=== PATIENT | female | born 1950 | race Caucasian/White ===

== ENCOUNTER 2016-12-26 09:28 | Inpatient (IN) | payer MEDICARE, BC ==
[~2016-12-26 09:28] MED LIST: Lactated Ringers 1,000 ML IV SCH; Lidocaine 1%/Sod Bicarbonate in NS 8.4% 1 ML Syringe IV PRN; Sodium Chloride 0.9% 10 ML Syringe FLUSH PRN
[2016-12-26] MEDS ORDERED: Ondansetron 4 MG/2 ML SDV ONE (09:49)
[2016-12-26] MEDS ORDERED: Morphine PF 10 MG/10 ML SDV ONE (09:50)
[2016-12-26] MEDS ORDERED: Midazolam 1 MG/ML 2 ML SDV ONE (09:50)
[2016-12-26] MEDS ORDERED: Propofol 200 MG/20 ML SDV ONE ×3 (09:50→14:28)
[2016-12-26] MEDS ORDERED: fentaNYL 100 MCG/2 ML SDV ONE (09:50)
[2016-12-26] MEDS ORDERED: Vancomycin 1 GM SDV ONE (11:00)
[2016-12-26] MEDS ORDERED: ceFAZolin 1 GM Vial ONE (11:26)
--- NOTE | 2016-12-26 11:28 | PCM.PREANE ---
Preanesthetic Assessment - Anesthesia/Transfusion/Family Hx Anesthesia History: Prior Anesthesia Without Reaction Other Type of Anesthesia Reaction Comment: anxiety Family History of Anesthesia Reaction: No Transfusion History: No Prior Transfusion(s) Type of Transfusion Reactions: Reports: Unknown - Review of Systems General: No Symptoms Pulmonary: No Symptoms, Other (sleep apnea wears CPAP) Cardiovascular: No Symptoms Gastrointestinal: No Symptoms Neurological: No Symptoms Other: Reports: Depression - Physical Assessment NPO Status Date: 12/25/16 NPO Status Time: 23:30 Pulse: 69 O2 Sat by Pulse Oximetry: 93 Respiratory Rate: 16 Blood Pressure: 131/6 Temperature: 36.6 C Height: 1.68 m Weight: 106.594 kg ASA Class: 2 Mental Status: Alert & Oriented x3 Airway Class: Mallampati = 2 Dentition: Reports: Normal Dentition Thyro-Mental Finger Breadths: 3 Mouth Opening Finger Breadths: 3 ROM/Head Extension: Full Lungs: Clear to Auscultation, Normal Respiratory Effort Cardiovascular: Regular Rate, Regular Rhythm - Lab Values: Laboratory Last Values C-Reactive Protein 0.7 mg/dL (<1.0) 12/22/16 12:22 MRSA (PCR) Positive H 12/07/16 10:05 - Allergies Allergies/Adverse Reactions: Allergies Allergy/AdvReac Type Severity Reaction Status Date / Time Sulfa (Sulfonamide Allergy Hives Verified 12/25/16 11:56 Antibiotics) - Blood Blood Available: No Product(s) Available: None - Anesthesia Plan Pre-Op Medication Ordered: None - Acknowledgements Anesthesia Type Planned: Spinal Pt an Appropriate Candidate for the Planned Anesthesia: Yes Alternatives and Risks of Anesthesia Discussed w Pt/Guardian: Yes Pt/Guardian Understands and Agrees with Anesthesia Plan: Yes PreAnesthesia Questionnaire HEENT History: Reports: Allergic Rhinitis, Impaired Vision, Sinusitis, Other ( See Below) Other HEENT History: eustachian tube dysfunction, wears glasses Cardiovascular History: Reports: None Respiratory History: Reports: Sleep Apnea, SOB Other Respiratory History: uses CPAP Gastrointestinal History: Reports: Chronic Diarrhea, Pancreatitis Genitourinary History: Reports: Other (See Below) Other Genitourinary History: frequency and urgency [employer] SU[employer]OR History: Reports: Musculoskeletal History: Reports: Other (See Below) Other Musculoskeletal History: plantar fascititis, left hip pain Neurological History: Reports: None Psychiatric History: Reports: Anxiety, Depression, Panic Attack Endocrine/Metabolic History: Reports: Obesity/BMI 30+ Hematologic History: Reports: None Immunologic History: Reports: None Oncologic (Cancer) History: Reports: None Dermatologic History: Reports: None - Infectious Disease History Infectious Disease History: Reports: MRSA - Past Surgical History Head Surgeries/Procedures: Reports: None HEENT Surgical History: Reports: Cataract Surgery, LASIK, Myringotomy w Tube(s) Cardiovascular Surgical History: Reports: None Respiratory Surgical History: Reports: None GI Surgical History: Reports: Cholecystectomy, Colonoscopy, Hernia Repair/Other Female Surgical History: Reports: Section, Hysterectomy Male Surgical History: Reports: None Endocrine Surgical History: Reports: None Neurological Surgical History: Reports: None Musculoskeletal Surgical History: Reports: Knee Replacement, Other (See Below) Other Musculoskeletal Surgeries/Procedures:: bilateral knee replacements Dermatological Surgical History: Reports: None - SUBSTANCE USE Smoking Status *Q: Never Smoker Second Hand Smoke Exposure: No Recreational Drug Use History: No - HOME MEDS Home Medications: Home Meds Cetirizine HCl [Zyrtec] 10 mg PO DAILY 05/08/15 [History] Sertraline HCl 150 mg PO DAILY 05/08/15 [History] Acetaminophen [Tylenol Arthritis] 2 tab PO Q8HR PRN 12/25/16 [History] Antiox #11/OM3/DHA/EPA/Lut/June [Eye Health Adult 50+ Softgel] 2 cap PO BID 12/25 [History] Calcium Carbonate/Vitamin D3 [Calcium 500 mg Chewable Tablet] 500 mg PO BID 07/06 [History] Dextran 70/Hypromellose [Artificial Tears] 1 drop EYEBOTH Q6H PRN 12/25/16 [ History] Flaxseed/Evening Prim/Bilberry [Tears Again Hydrate Softgel] 1 cap PO DAILY 07/06 [History] Ibuprofen [Advil] 800 mg PO Q6H PRN 12/25/16 [History] L.acidoph,Paracasei, B.lactis [Probiotic] 1 cap PO DAILY 12/25/16 [History] Melatonin/Pyridoxine HCl (B6) [Melatonin 10 mg Tablet] 10 mg PO BEDTIME [History] Meloxicam [Meloxicam] 15 mg PO DAILY 12/25/16 [History] Naproxen Sodium [Aleve] 1 - 2 tab PO BID PRN 12/25/16 [History] guaiFENesin [Mucinex] 600 mg PO BID PRN 12/25/16 [History] - CURRENT (IN HOUSE) MEDS Current Meds: Current Medications Morphine Sulfate 8 mg/Epinephrine HCl 0.3 mg/Cefuroxime Sodium 750 mg/Ketorolac Tromethamine 30 mg/Sodium Chloride 27.9 ml 0 mg .XX ONETIME ONE Stop: 12/26/16 13:31 Lactated Ringer's (Ringers, Lactated) 1,000 mls @ 125 mls/hr IV ASDIRECTED ADDI Lidocaine/Sodium Bicarbonate (Buffered Lidocaine 1% In Ns 8.4%) 0.25 ml IV ONETIME PRN PRN Reason: Prior to IV Start Stop: 12/26/16 18:00 Sodium Chloride (Saline Flush) 10 ml FLUSH ASDIRECTED PRN PRN Reason: Keep Vein Open Discontinued Medications Cefazolin Sodium (Ancef) Confirm Administered Dose 2 gm .ROUTE .STK-MED ONE Stop: 12/26/16 09:50 Fentanyl (Sublimaze) Confirm Administered Dose 100 mcg .ROUTE .STK-MED ONE Stop: 12/26/16 09:51 Midazolam HCl (Versed 1 Mg/Ml) Confirm Administered Dose 2 mg .ROUTE .STK-MED ONE Stop: 12/26/16 09:51 Morphine Sulfate (Duramorph Pf) Confirm Administered Dose 10 mg .ROUTE .STK-MED ONE Stop: 12/26/16 09:51 Ondansetron HCl (Zofran) Confirm Administered Dose 4 mg .ROUTE .STK-MED ONE Stop: 12/26/16 09:50 Propofol (Diprivan 20 Ml) Confirm Administered Dose 400 mg .ROUTE .STK-MED ONE Stop: 12/26/16 09:51 Vancomycin HCl (Vancomycin) 1 gm .XX ONETIME ONE Stop: 12/26/16 11:01
[2016-12-26] MEDS ORDERED: Vancomycin 1.5 GM in Sodium Chloride 0.9% 500 ML IV ONE ×2 (13:00)
[2016-12-26] MEDS ORDERED: ePHEDrine 50 MG/ML SDV ONE (13:16)
[2016-12-26] MEDS ORDERED: Ketorolac 30 MG/ML SDV ONE (13:16)
[2016-12-26] MEDS: Iodine/Sodium Iodide 2% Tincture 30 ML Bottle ONE ×2 (13:39→14:07)
[2016-12-26] MEDS: ceFAZolin 1 GM Vial ONE ×2 (13:40→14:08)
[2016-12-26] MEDS: Bupivacaine 0.25% 30 ML SDV ONE ×2 (13:41→14:14)
[2016-12-26] MEDS: Morphine 8 MG, EPINEPHrine 0.3 MG, Cefuroxime 750 MG, Ketorolac 30 MG, Sodium Chloride ... ONE ×20 (13:41→16:05)
[2016-12-26] MEDS ORDERED: Lactated Ringers 1,000 ML ONE (14:29)
[2016-12-26] MEDS ORDERED: Magnesium Hydroxide 400 MG/5 ML Susp 30 ML Cup PO PRN (14:51)
[2016-12-26] MEDS ORDERED: Bisacodyl 5 MG Tab PO PRN (14:51)
[2016-12-26] MEDS ORDERED: diphenhydrAMINE 50 MG/ML SDV IVPUSH PRN ×2 (14:51→14:57)
[2016-12-26] MEDS ORDERED: Morphine 2 MG/ML Syringe IVPUSH PRN (14:51)
[2016-12-26] MEDS ORDERED: Sennosides 8.6 MG Tab PO PRN (14:51)
[2016-12-26] MEDS ORDERED: Naloxone 0.4 MG/ML SDV IVPUSH PRN (14:51)
[2016-12-26] MEDS ORDERED: HYDROmorphone 0.5 MG/0.5 ML Syringe IVPUSH PRN (14:57)
[2016-12-26] MEDS ORDERED: fentaNYL 100 MCG/2 ML SDV IVPUSH PRN (14:57)
[2016-12-26] MEDS ORDERED: Ondansetron 4 MG/2 ML SDV IVPUSH PRN ×2 (14:57→15:09)
--- NOTE | 2016-12-26 14:57 | PCM.POSTAN ---
POST ANESTHESIA ASSESSMENT - MENTAL STATUS Mental Status: Alert, Oriented - VITAL SIGNS Pulse Rate: 80 SaO2: 94 Resp Rate: 16 Blood Pressure: 113/64 Temperature: 36.2 C - RESPIRATORY Respiratory Status: Respiratory Rate WNL, Airway Patent, O2 Saturation Stable, Supplemental Oxygen - CARDIOVASCULAR CV Status: Pulse Rate WNL, Blood Pressure Stable - GASTROINTESTINAL GI Status: No Symptoms - PAIN Pain Score: 0 - POST OP HYDRATION Hydration Status: Adequate & Stable
[2016-12-26] MEDS ORDERED: Ketorolac 15 MG/ML SDV IVPUSH PRN (15:00)
[2016-12-26] MEDS ORDERED: Cyclobenzaprine 10 MG Tab PO PRN (15:00)
[2016-12-26] MEDS ORDERED: Non-Formulary Medication 1 Each (Dextran 70/Hypromellose [Artificial Tears] 1 DROP) EYEBOTH PRN (15:09)
[2016-12-26] MEDS ORDERED: guaiFENesin 600 MG Tab.ER PO PRN (15:09)
--- NOTE | 2016-12-26 15:36 | CR ---
Pelvis and left hip: AP view of the pelvis was obtained as well as lateral view the left hip. Comparison: No previous pelvis or left hip exam. Left hip prosthesis is seen. Components are aligned. Underlying bony structures are intact. Nothing acute is seen. Impression: 1. Recently placed left hip prosthesis. No acute bony abnormality is identified. Diagnostic code #2
[2016-12-26] MEDS ORDERED: Scopolamine 1.5 MG Transdermal Patch TRDERM PRN (16:24)
--- NOTE | 2016-12-26 16:38 | PCM.CONS ---
H&P History of Present Illness - General Date of Service: 12/26/16 Admit Problem/Dx: Admission Diagnosis/Problem Admission Diagnosis/Problem Osteoarthritis of hip Source of Information: Patient, Provider, RN, RN Notes Reviewed, Other ( Surgical notes) History Limitations: Reports: No Limitations - History of Present Illness Initial Comments - Free Text/Narative: Amy Vences is a 66 yo female patient of Dr. Hernandez who is post-operative day 0 of left NANCY. Hospital medicine was consulted for post-operative medical care. At this time she is is complaining of severe nausea. Scopolamine patch has been ordered and nursing is applying. Pain is controlled. She denies any chest pain, shortness of breath, palpitations, or vomiting. She carries a history of : EMELIA and wears CPAP at night, anxiety, depression, prior panic attacks, obesity , MRSA, and a history of prior postoperative nausea and vomiting. She is a full code. Her primary care provider is Dr. Bergeron at [facility] in [place].. Left Hip Pain Score (Numeric/FACES): 0 - Related Data Allergies/Adverse Reactions: Allergies Allergy/AdvReac Type Severity Reaction Status Date / Time Sulfa (Sulfonamide Allergy Hives Verified 12/26/16 11:38 Antibiotics) Home Medications: Home Meds Cetirizine HCl [Zyrtec] 10 mg PO DAILY 05/08/15 [History] Sertraline HCl 150 mg PO DAILY 05/08/15 [History] Acetaminophen [Tylenol Arthritis] 2 tab PO Q8HR PRN 12/25/16 [History] Antiox #11/OM3/DHA/EPA/Lut/June [Eye Health Adult 50+ Softgel] 2 cap PO BID 12/25 [History] Calcium Carbonate/Vitamin D3 [Calcium 500 mg Chewable Tablet] 500 mg PO BID 07/06 [History] Dextran 70/Hypromellose [Artificial Tears] 1 drop EYEBOTH Q6H PRN 12/25/16 [ History] Flaxseed/Evening Prim/Bilberry [Tears Again Hydrate Softgel] 1 cap PO DAILY 07/06 [History] Ibuprofen [Advil] 800 mg PO Q6H PRN 12/25/16 [History] L.acidoph,Paracasei, B.lactis [Probiotic] 1 cap PO DAILY 12/25/16 [History] Melatonin/Pyridoxine HCl (B6) [Melatonin 10 mg Tablet] 10 mg PO BEDTIME [History] Meloxicam [Meloxicam] 15 mg PO DAILY 12/25/16 [History] Naproxen Sodium [Aleve] 1 - 2 tab PO BID PRN 12/25/16 [History] guaiFENesin [Mucinex] 600 mg PO BID PRN 12/25/16 [History] Past Medical History HEENT History: Reports: Allergic Rhinitis, Impaired Vision, Sinusitis, Other ( See Below) Other HEENT History: eustachian tube dysfunction, wears glasses Cardiovascular History: Reports: None Respiratory History: Reports: Sleep Apnea, SOB Other Respiratory History: uses CPAP Gastrointestinal History: Reports: Chronic Diarrhea, Pancreatitis Genitourinary History: Reports: Other (See Below) Other Genitourinary History: frequency and urgency [employer]OM [employer]IST History: Reports: Musculoskeletal History: Reports: Other (See Below) Other Musculoskeletal History: plantar fascititis, left hip pain Neurological History: Reports: None Psychiatric History: Reports: Anxiety, Depression, Panic Attack Endocrine/Metabolic History: Reports: Obesity/BMI 30+ Hematologic History: Reports: None Immunologic History: Reports: None Oncologic (Cancer) History: Reports: None Dermatologic History: Reports: None - Infectious Disease History Infectious Disease History: Reports: MRSA - Past Surgical History Head Surgeries/Procedures: Reports: None HEENT Surgical History: Reports: Cataract Surgery, LASIK, Myringotomy w Tube(s) Cardiovascular Surgical History: Reports: None Respiratory Surgical History: Reports: None GI Surgical History: Reports: Cholecystectomy, Colonoscopy, Hernia Repair/Other Female Surgical History: Reports: Section, Hysterectomy Male Surgical History: Reports: None Endocrine Surgical History: Reports: None Neurological Surgical History: Reports: None Musculoskeletal Surgical History: Reports: Knee Replacement, Other (See Below) Other Musculoskeletal Surgeries/Procedures:: bilateral knee replacements Dermatological Surgical History: Reports: None Social & Family History - Family History Family Medical History: Noncontributory Cardiac: Reports: Hypertension, [place] Respiratory: Reports: Asthma Neurological: Reports: Alzheimers Disease Endocrine/Metabolic: Reports: Diabetes, type II Oncologic: Reports: Pancreatic - Tobacco Use Smoking Status *Q: Never Smoker Second Hand Smoke Exposure: No - Caffeine Use Caffeine Use: Reports: Soda - Recreational Drug Use Recreational Drug Use: No H&P Review of Systems - Review of Systems: Review Of Systems: See Below General: Reports: No Symptoms HEENT: Reports: No Symptoms Pulmonary: Reports: No Symptoms Cardiovascular: Reports: No Symptoms Gastrointestinal: Reports: Nausea. Denies: Abdominal Pain, Constipation, Diarrhea, Distension, Vomiting Genitourinary: Reports: No Symptoms Musculoskeletal: Reports: Joint Pain (left hip pain - controlled ). Denies: Hand Pain, Leg Pain, Foot Pain, Muscle Pain, Muscle Stiffness Skin: Reports: No Symptoms Psychiatric: Reports: No Symptoms Neurological: Reports: No Symptoms Hematologic/Lymphatic: Reports: No Symptoms Immunologic: Reports: No Symptoms Exam - Exam Exam: See Below - Vital Signs Vital Signs: Last Vital Signs Temp 97.0 F 12/26/16 15:51 Pulse 78 12/26/16 15:51 Resp 13 12/26/16 15:51 BP 152/82 H 12/26/16 15:51 Pulse Ox 95 12/26/16 15:51 Weight: 235 lb - Exam Quality Assessment: Supplemental Oxygen, Urinary Catheter, DVT Prophylaxis General: Alert, Oriented, Cooperative, Moderate Distress (Extreme nausea) HEENT: Conjunctiva Clear, EACs Clear, EOMI, Hearing Intact, Mucosa Moist & Effort , Nares Patent, Normal Nasal Septum, Posterior Pharynx Clear, PERRLA Neck: Supple, Trachea Midline. No: JVD Lungs: Clear to Auscultation, Normal Respiratory Effort Cardiovascular: Regular Rate, Regular Rhythm GI/Abdominal Exam: Normal Bowel Sounds, Soft, Non-Tender, No Organomegaly, No Distention, No Abnormal Bruit, No Mass, Pelvis Stable (Female) Exam: Deferred Rectal (Female) Exam: Deferred Back Exam: Normal Inspection Extremities: No Pedal Edema, Normal Capillary Refill, Other (Bandage on left leg is dry and intact. Leg wedge in place) Neurological: Cranial Nerves Intact (Grossly) Neuro Extensive - Mental Status: Alert, Oriented x3, Normal Mood/Affect, Normal Cognition Neuro Extensive - Motor, Sensory, Reflexes: CN II-XII Intact (Grossly) Psychiatric: Alert, Normal Affect, Normal Mood - Patient Data Lab Results Last 24 hrs: Laboratory Results - last 24 hr 12/26/16 Range/Units 11:30 Blood Type B POSITIVE Gel Antibody Screen Negative Consult PN Assessment/Plan POD#: 0 Procedures: Procedures COMPLETE CBC W/AUTO DIFF WBC (05/11/15) COMPREHEN METABOLIC PANEL (05/11/15) CULTURE AEROBIC IDENTIFY (10/15/13) CULTURE OTHR SPECIMN AEROBIC (04/07/15) DRAIN/INJ JOINT/BURSA W/O US (08/16/16) GAIT TRAINING THERAPY (05/11/15) MEASURE BLOOD OXYGEN LEVEL (05/11/15) MICROBE SUSCEPTIBLE JIMENA (10/15/13) MR-STAPH DNA AMP PROBE (05/11/15) OT EVALUATION (05/11/15) POLYSOM 6/>YRS CPAP 4/> PARM (05/19/14) PT EVALUATION (05/11/15) ROUTINE VENIPUNCTURE (05/11/15) SELF CARE MNGMENT TRAINING (05/11/15) THERAPEUTIC ACTIVITIES (05/11/15) THERAPEUTIC EXERCISES (05/11/15) THROMBOPLASTIN TIME PARTIAL (04/27/15) URINE BACTERIA CULTURE (10/15/13) URINE CULTURE/COLONY COUNT (02/09/15) X-RAY EXAM OF KNEE 1 OR 2 (05/11/15) (1) S/P total hip arthroplasty SNOMED Code(s): 451250126524 Code(s): Z96.649 - PRESENCE OF UNSPECIFIED ARTIFICIAL HIP JOINT Priority: High Current Visit: Yes Qualifiers: Laterality: left Qualified Code(s): Z96.642 - Presence of left artificial hip joint (2) Post-operative nausea and vomiting SNOMED Code(s): 8211335 Code(s): R11.2 - NAUSEA WITH VOMITING, UNSPECIFIED; Z98.890 - OTHER SPECIFIED POSTPROCEDURAL STATES Priority: High Current Visit: Yes (3) EMELIA (obstructive sleep apnea) SNOMED Code(s): 70013804 Code(s): G47.33 - OBSTRUCTIVE SLEEP APNEA (ADULT) (PEDIATRIC) Priority: Medium Current Visit: Yes (4) Depression SNOMED Code(s): 93750759 Code(s): F32.9 - MAJOR DEPRESSIVE DISORDER, SINGLE EPISODE, UNSPECIFIED Priority: Low Current Visit: Yes Qualifiers: Depression Type: unspecified Qualified Code(s): F32.9 - Major depressive disorder, single episode, unspecified (5) Anxiety SNOMED Code(s): 35025445 Code(s): F41.9 - ANXIETY DISORDER, UNSPECIFIED Priority: Low Current Visit: Yes (6) Obesity (BMI 30-39.9) SNOMED Code(s): 674714279 Code(s): E66.9 - OBESITY, UNSPECIFIED Priority: Low Current Visit: Yes (7) Osteoarthritis SNOMED Code(s): 394945286 Code(s): M19.90 - UNSPECIFIED OSTEOARTHRITIS, UNSPECIFIED SITE Priority: Low Current Visit: Yes Qualifiers: Osteoarthritis location: hip Osteoarthritis type: primary Laterality: left Qualified Code(s): M16.12 - Unilateral primary osteoarthritis, left hip Problem List Initiated/Reviewed/Updated: Yes My Orders Last 24 Hours: My Active Orders 12/26/16 16:24 Scopolamine [Transderm-Scop] 1.5 mg TRDERM Q72H PRN Plan: I/P: Acute: S/P left total hip arthroplasty - post-operative day 0 -DVT prophylaxis and pain management per primary care team -PT/OT -IS/RT -Monitor oxygen saturation -Titrate oxygen as needed -Vital signs stable -Pre-operative Hgb was 13.8 Osteoarthritis of left hip -Pain management per primary care team Post-operative nausea but no vomiting. -Unresponsive to zofran -Scopolamine patch ordered -Has hx/o post-operative nausea and vomiting on prior joint surgery relieved by Phenergan. -Monitor for improvement Chronic: EMELIA on CPAP - RT to assist in setting up Anxiety - controlled Depression - controlled Obesity Hx/o MRSA infection - contact precautions Plan: SW/CM for discharge planning GI prophylaxis Home medications as indicated Other orders as listed above Routine AM labs She is a full code. Her PCP is Dr. Bergeron at [facility] in [place] Thank you for allowing us to participate in the care of this patient!! Requesting Provider: Dr. Hernandez Date Consult Requested: 12/26/16 Reason for Consult: Post-operative medical management Patient History Reviewed: Yes Admission H&P Reviewed: Yes
[2016-12-26] MEDS: ceFAZolin 2 GM in Premix Bag 1 BAG IV SCH (19:50)
[2016-12-26] MEDS: Promethazine 12.5 MG in Sodium Chloride 0.9% 50 ML IV PRN (20:32)
[2016-12-26] MEDS ORDERED: MELATONIN PO SCH (21:00)
[2016-12-26] MEDS ORDERED: PYRIDOXINE HCL PO SCH (21:00)
[2016-12-26] MEDS ORDERED: [UNRECOGNIZED DRUG - OTHER] PO SCH (21:00)
[2016-12-26] MEDS: Multivitamins with Minerals/Folic Acid/Lutein/Zeaxanth Tab PO SCH (21:12)
[2016-12-26] MEDS: Docusate Sodium 100 MG Cap PO SCH (21:12)
[2016-12-26] MEDS: Famotidine 20 MG Tab PO SCH (21:12)
[2016-12-26] MEDS: Calcium Carbonate/Vitamin D3 1500 MG-200 Units Tab PO SCH (21:12)
[2016-12-26] MEDS ORDERED: Hypromellose 0.5% Ophth Soln 15 ML Bottle EYEBOTH PRN (21:30)
[2016-12-27] MEDS: Vancomycin 1 GM, Vancomycin 500 MG in Sodium Chloride 0.9% 500 ML IV SCH ×2 (00:30→13:44)
[2016-12-27] MEDS: ceFAZolin 2 GM in Premix Bag 1 BAG IV SCH ×2 (03:30→12:43)
[2016-12-27] MEDS: Promethazine 12.5 MG in Sodium Chloride 0.9% 50 ML IV PRN (05:18)
[2016-12-27] MEDS: Docusate Sodium 100 MG Cap PO SCH (08:07)
[2016-12-27] MEDS: Famotidine 20 MG Tab PO SCH (08:07)
[2016-12-27] MEDS: Multivitamins with Minerals/Folic Acid/Lutein/Zeaxanth Tab PO SCH (08:10)
[2016-12-27] MEDS: Calcium Carbonate/Vitamin D3 1500 MG-200 Units Tab PO SCH (08:11)
[2016-12-27] MEDS: Acetaminophen/oxyCODONE 325-5 MG Tab PO PRN ×2 (08:13→12:33)
[2016-12-27] MEDS ORDERED: Sertraline 50 MG Tab PO SCH (09:00)
[2016-12-27] MEDS ORDERED: Saccharomyces Boulardii (Probiotic) 250 MG Cap PO SCH (09:00)
[2016-12-27] MEDS ORDERED: Aspirin 325 MG Tab.EC PO SCH (09:00)
[2016-12-27] MEDS ORDERED: Loratadine 10 MG Tab PO SCH (09:00)
[2016-12-27] MEDS ORDERED: Ondansetron 4 MG Tab.DIS PO PRN (09:25)
--- NOTE | 2016-12-27 09:29 | PCM.CONSN ---
- General Info Date of Service: 12/27/16 Admission Dx/Problem (Free Text): Admission Diagnosis/Problem Admission Diagnosis/Problem Osteoarthritis of hip POD #[address] Hernandez. Pain under good control. Nausea was increased last night despite scopolamine patch. She did receive phenergan IV which helped. She has mild nausea this morning but is hungry. She is up to bathroom with staff assist, does well. Hgb 12.1 VSS. Functional Status: Reports: Pain Controlled, Tolerating Diet, Ambulating, Urinating, Incentive Spirometry, Other (nausea improved from last night). Denies: New Symptoms - Review of Systems General: Reports: No Symptoms HEENT: Reports: No Symptoms Pulmonary: Reports: No Symptoms Cardiovascular: Reports: No Symptoms Gastrointestinal: Reports: Nausea. Denies: Abdominal Pain, Diarrhea, Vomiting Genitourinary: Reports: No Symptoms Musculoskeletal: Reports: Leg Pain Skin: Reports: No Symptoms Neurological: Reports: No Symptoms Psychiatric: Reports: No Symptoms - Patient Data Vitals - Most Recent: Last Vital Signs Temp 98.6 F 12/27/16 08:22 Pulse 76 12/27/16 08:22 Resp 18 12/27/16 08:22 BP 137/60 12/27/16 08:22 Pulse Ox 95 12/27/16 08:22 Weight - Most Recent: 244 lb 11.2 oz I&O - Last 24 Hours: Intake & Output 12/26/16 12/27/16 12/27/16 22:59 06:59 14:59 Intake Total 590 1100 Output Total 50 350 Balance 540 750 Lab Results Last 24 Hours: Laboratory Results - last 24 hr 12/26/16 12/26/16 12/27/16 Range/Units 11:30 21:22 06:33 WBC 15.13 H (3.98-10.04) K/mm3 RBC 4.17 (3.98-5.22) M/mm3 Hgb 12.1 (11.2-15.7) gm/L Hct 39.4 (34.1-44.9) % MCV 94.5 (79.4-94.8) fl MCH 29.0 (25.6-32.2) pg MCHC 30.7 L (32.2-35.5) g/dl RDW Std Deviation 48.7 H (36.4-46.3) fL Plt Count 233 (182-369) K/mm3 MPV 9.6 (9.4-12.3) fl Sodium (136-145) mEq/L Potassium (3.5-5.1) mEq/L Chloride (98-107) mEq/L Carbon Dioxide (21-32) mEq/L Anion Gap (5-15) BUN (7-18) mg/dL Creatinine (0.55-1.02) mg/dL Est Cr Clr Drug Dosing mL/min Estimated GFR (MDRD) (>60) mL/min BUN/Creatinine Ratio (14-18) Glucose (80-115) mg/dL POC Glucose 142 H (80-115) mg/dL Calcium (8.5-10.1) mg/dL Total Bilirubin (0.2-1.0) mg/dL AST (15-37) U/L ALT (14-59) U/L Alkaline Phosphatase (46-116) U/L Total Protein (6.4-8.2) g/dl Albumin (3.4-5.0) g/dl Globulin gm/dL Albumin/Globulin Ratio (1-2) Blood Type B POSITIVE Gel Antibody Screen Negative 12/27/16 Range/Units 06:33 WBC (3.98-10.04) K/mm3 RBC (3.98-5.22) M/mm3 Hgb (11.2-15.7) gm/L Hct (34.1-44.9) % MCV (79.4-94.8) fl MCH (25.6-32.2) pg MCHC (32.2-35.5) g/dl RDW Std Deviation (36.4-46.3) fL Plt Count (182-369) K/mm3 MPV (9.4-12.3) fl Sodium 143 (136-145) mEq/L Potassium 4.5 (3.5-5.1) mEq/L Chloride 108 H (98-107) mEq/L Carbon Dioxide 27 (21-32) mEq/L Anion Gap 12.5 (5-15) BUN 14 (7-18) mg/dL Creatinine 0.8 (0.55-1.02) mg/dL Est Cr Clr Drug Dosing 64.76 mL/min Estimated GFR (MDRD) > 60 (>60) mL/min BUN/Creatinine Ratio 17.5 (14-18) Glucose 139 H (80-115) mg/dL POC Glucose (80-115) mg/dL Calcium 7.9 L (8.5-10.1) mg/dL Total Bilirubin 0.3 (0.2-1.0) mg/dL AST 39 H (15-37) U/L ALT 31 (14-59) U/L Alkaline Phosphatase 93 (46-116) U/L Total Protein 6.1 L (6.4-8.2) g/dl Albumin 2.7 L (3.4-5.0) g/dl Globulin 3.4 gm/dL Albumin/Globulin Ratio 0.8 L (1-2) Blood Type Gel Antibody Screen Med Orders - Current: Current Medications Artificial Tears (Isopto Tears 0.5% Ophth Soln) 0 ml EYEBOTH Q6H PRN PRN Reason: Dry Eyes Aspirin (Ecotrin) 325 mg PO BID [facility] Last Admin: 12/27/16 08:08 Dose: 325 mg Bisacodyl (Dulcolax) 5 mg PO DAILY PRN PRN Reason: Constipation Calcium Carbonate (Calcium Carbonate/Vitamin D 1500 Mg-200 Unit) 1 tab PO BID [facility] Last Admin: 12/27/16 08:11 Dose: 1 tab Cyclobenzaprine HCl (Flexeril) 10 mg PO TID PRN PRN Reason: Spasms Docusate Sodium (Colace) 100 mg PO BID [facility] Last Admin: 12/27/16 08:07 Dose: 100 mg Famotidine (Pepcid) 20 mg PO Q12H [facility] Last Admin: 12/27/16 08:07 Dose: 20 mg Guaifenesin (Mucinex) 600 mg PO BID PRN PRN Reason: cold symptoms Cefazolin Sodium/Dextrose 2 gm (/ Premix) 50 mls @ 100 mls/hr IV Q8H [facility] Stop: 12/27/16 11:59 Last Admin: 12/27/16 03:30 Dose: 100 mls/hr Vancomycin HCl 1 gm/Vancomycin HCl 500 mg/ Sodium Chloride 500 mls @ 333.333 mls/hr IV Q12H [facility] Stop: 12/27/16 14:29 Last Admin: 12/27/16 00:30 Dose: 333.333 mls/hr Promethazine HCl 12.5 mg/ (Sodium Chloride) 50.5 mls @ 100 mls/hr IV Q6H PRN PRN Reason: Nausea/Vomiting Last Admin: 12/27/16 05:18 Dose: 100 mls/hr Ketorolac Tromethamine (Toradol) 15 mg IVPUSH Q6H PRN PRN Reason: Pain Loratadine (Claritin) 10 mg PO DAILY [facility] Last Admin: 12/27/16 08:12 Dose: 10 mg Magnesium Hydroxide (Milk Of Magnesia) 30 ml PO BID PRN PRN Reason: Constipation Morphine Sulfate (Morphine) 2 mg IVPUSH Q2H PRN PRN Reason: Breakthrough Pain Naloxone HCl (Narcan) 0.1 mg IVPUSH Q5M PRN PRN Reason: Oversedation Ondansetron HCl (Zofran Odt) 4 mg PO Q4H PRN PRN Reason: Nausea/Vomiting Oxycodone/Acetaminophen (Percocet 325-5 Mg) 1 - 2 tab PO Q4H PRN PRN Reason: Pain Last Admin: 12/27/16 08:13 Dose: 2 tab Saccharomyces Boulardii (Florastor) 250 mg PO DAILY [facility] Last Admin: 12/27/16 08:16 Dose: 250 mg Scopolamine (Transderm-Scop) 1.5 mg TRDERM Q72H PRN PRN Reason: Nausea/Vomiting Last Admin: 12/26/16 16:57 Dose: 1.5 mg Senna (Senna) 8.6 mg PO BID PRN PRN Reason: Constipation Sertraline HCl (Zoloft) 150 mg PO DAILY [facility] Last Admin: 12/27/16 08:12 Dose: 150 mg Sodium Chloride (Saline Flush) 10 ml FLUSH ASDIRECTED PRN PRN Reason: Keep Vein Open Vancomycin HCl (Pharmacy To Dose - Vancomycin) 1 dose .XX ASDIRECTED [facility] Vit A/Vit C/Vit E/Selen/Cu/Zn/Lutei (Icaps Mv) 2 tab PO BID [facility] Last Admin: 12/27/16 08:10 Dose: 2 tab Discontinued Medications Bupivacaine HCl (Marcaine 0.25%) Confirm Administered Dose 30 ml .ROUTE .STK- MED ONE Stop: 12/26/16 11:27 Last Admin: 12/26/16 14:14 Dose: 30 ml Cefazolin Sodium (Ancef) Confirm Administered Dose 2 gm .ROUTE .STK-MED ONE Stop: 12/26/16 09:50 Last Admin: 12/26/16 14:08 Dose: 2 gm Cefazolin Sodium (Ancef) Confirm Administered Dose 2 gm .ROUTE .STK-MED ONE Stop: 12/26/16 11:27 Morphine Sulfate 8 mg/Epinephrine HCl 0.3 mg/Cefuroxime Sodium 750 mg/Ketorolac Tromethamine 30 mg/Sodium Chloride 27.9 ml 0 mg .XX ONETIME ONE Stop: 12/26/16 13:31 Last Admin: 12/26/16 16:05 Dose: Not Given Diphenhydramine HCl (Benadryl) 25 mg IVPUSH Q6H PRN PRN Reason: itching Stop: 12/26/16 20:00 Last Admin: 12/26/16 16:57 Dose: 25 mg Diphenhydramine HCl (Benadryl) 25 mg IVPUSH Q4H PRN PRN Reason: Nausea Ephedrine Sulfate (Ephedrine Sulfate) Confirm Administered Dose 50 mg .ROUTE .STK-MED ONE Stop: 12/26/16 13:17 Fentanyl (Sublimaze) Confirm Administered Dose 100 mcg .ROUTE .STK-MED ONE Stop: 12/26/16 09:51 Fentanyl (Sublimaze) 50 mcg IVPUSH Q5M PRN PRN Reason: pain Stop: 12/26/16 18:00 Hydromorphone HCl (Dilaudid) 0.5 mg IVPUSH Q15M PRN PRN Reason: Pain (severe 7-10) Stop: 12/26/16 23:00 Lactated Ringer's (Ringers, Lactated) 1,000 mls @ 125 mls/hr IV ASDIRECTED [facility] Last Admin: 12/26/16 11:10 Dose: 125 mls/hr Vancomycin HCl 1.5 gm/ Sodium (Chloride) 500 mls @ 333.333 mls/hr IV ONETIME ONE Stop: 12/26/16 14:29 Last Admin: 12/26/16 16:12 Dose: Not Given Vancomycin HCl 1.5 gm/ Sodium (Chloride) 500 mls @ 333.333 mls/hr IV ONETIME ONE Stop: 12/26/16 14:29 Last Admin: 12/26/16 16:12 Dose: Not Given Lactated Ringer's (Ringers, Lactated) Confirm Administered Dose 1,000 mls @ as directed .ROUTE .STK-MED ONE Stop: 12/26/16 14:30 Iodine (Iodine 2% Mild Tincture) Confirm Administered Dose 30 ml .ROUTE .STK- MED ONE Stop: 12/26/16 11:27 Last Admin: 12/26/16 14:07 Dose: 18 ml Ketorolac Tromethamine (Toradol) Confirm Administered Dose 30 mg .ROUTE .STK- MED ONE Stop: 12/26/16 13:17 Lidocaine/Sodium Bicarbonate (Buffered Lidocaine 1% In Ns 8.4%) 0.25 ml IV ONETIME PRN PRN Reason: Prior to IV Start Stop: 12/26/16 18:00 Last Admin: 12/26/16 11:09 Dose: 0.25 ml Midazolam HCl (Versed 1 Mg/Ml) Confirm Administered Dose 2 mg .ROUTE .STK-MED ONE Stop: 12/26/16 09:51 Morphine Sulfate (Duramorph Pf) Confirm Administered Dose 10 mg .ROUTE .STK-MED ONE Stop: 12/26/16 09:51 Non-Formulary Medication (Melatonin/Pyridoxine Hcl (B6) [Melatonin 10 Mg Tablet] ) 10 mg PO BEDTIME [facility] Ondansetron HCl (Zofran) Confirm Administered Dose 4 mg .ROUTE .STK-MED ONE Stop: 12/26/16 09:50 Ondansetron HCl (Zofran) 4 mg IVPUSH ONETIME PRN PRN Reason: Nausea/Vomiting Stop: 12/26/16 18:00 Ondansetron HCl (Zofran) 4 mg IVPUSH Q6H PRN PRN Reason: Nausea/Vomiting Stop: 12/26/16 18:00 Last Admin: 12/26/16 15:29 Dose: 4 mg Propofol (Diprivan 20 Ml) Confirm Administered Dose 400 mg .ROUTE .STK-MED ONE Stop: 12/26/16 09:51 Propofol (Diprivan 20 Ml) Confirm Administered Dose 200 mg .ROUTE .STK-MED ONE Stop: 12/26/16 13:42 Propofol (Diprivan 20 Ml) Confirm Administered Dose 200 mg .ROUTE .STK-MED ONE Stop: 12/26/16 14:29 Tranexamic Acid (Cyklokapron) Confirm Administered Dose 1,000 mg .ROUTE .STK- MED ONE Stop: 12/26/16 11:27 Last Admin: 12/26/16 14:15 Dose: 1,000 mg Vancomycin HCl (Vancomycin) 1 gm .XX ONETIME ONE Stop: 12/26/16 11:01 Last Admin: 12/26/16 14:15 Dose: 1 gm - Exam Quality Assessment: Supplemental Oxygen, DVT Prophylaxis General: Alert, Oriented, Cooperative, No Acute Distress HEENT: Pupils Equal, EOMI, Mucous Membr. Moist/[place] Neck: Supple Lungs: Clear to Auscultation, Normal Respiratory Effort Cardiovascular: Regular Rate, Regular Rhythm GI/Abdominal Exam: Normal Bowel Sounds, Soft, Non-Tender (Female) Exam: Deferred Extremities: Normal Inspection, Other (teds and ice to hip; left hip is soft without s/s of infection.) Peripheral Pulses: 2+: Dorsalis Pedis (L), Dorsalis Pedis (R) Skin: Warm, Dry Wound/Incisions: Dressing Dry and Intact Neurological: No New Focal Deficit Psy/Mental Status: Alert, Normal Affect, Normal Mood Consult PN Assessment/Plan POD#: 1 Procedures: Procedures COMPLETE CBC W/AUTO DIFF WBC (05/11/15) COMPREHEN METABOLIC PANEL (05/11/15) CULTURE AEROBIC IDENTIFY (10/15/13) CULTURE OTHR SPECIMN AEROBIC (04/07/15) DRAIN/INJ JOINT/BURSA W/O US (08/16/16) GAIT TRAINING THERAPY (05/11/15) MEASURE BLOOD OXYGEN LEVEL (05/11/15) MICROBE SUSCEPTIBLE JIMENA (10/15/13) MR-STAPH DNA AMP PROBE (05/11/15) OT EVALUATION (05/11/15) POLYSOM 6/>YRS CPAP 4/> PARM (05/19/14) PT EVALUATION (05/11/15) ROUTINE VENIPUNCTURE (05/11/15) SELF CARE MNGMENT TRAINING (05/11/15) THERAPEUTIC ACTIVITIES (05/11/15) THERAPEUTIC EXERCISES (05/11/15) THROMBOPLASTIN TIME PARTIAL (04/27/15) URINE BACTERIA CULTURE (10/15/13) URINE CULTURE/COLONY COUNT (02/09/15) X-RAY EXAM OF KNEE 1 OR 2 (05/11/15) (1) S/P total hip arthroplasty SNOMED Code(s): 516687230343 Code(s): Z96.649 - PRESENCE OF UNSPECIFIED ARTIFICIAL HIP JOINT Priority: High Current Visit: Yes Qualifiers: Laterality: left Qualified Code(s): Z96.642 - Presence of left artificial hip joint (2) Post-operative nausea and vomiting SNOMED Code(s): 8134463 Code(s): R11.2 - NAUSEA WITH VOMITING, UNSPECIFIED; Z98.890 - OTHER SPECIFIED POSTPROCEDURAL STATES Priority: High Current Visit: Yes (3) Osteoarthritis SNOMED Code(s): 165499755 Code(s): M19.90 - UNSPECIFIED OSTEOARTHRITIS, UNSPECIFIED SITE Priority: High Current Visit: Yes Qualifiers: Osteoarthritis location: hip Osteoarthritis type: primary Laterality: left Qualified Code(s): M16.12 - Unilateral primary osteoarthritis, left hip (4) EMELIA (obstructive sleep apnea) SNOMED Code(s): 64814924 Code(s): G47.33 - OBSTRUCTIVE SLEEP APNEA (ADULT) (PEDIATRIC) Priority: Medium Current Visit: Yes (5) Anxiety SNOMED Code(s): 13364017 Code(s): F41.9 - ANXIETY DISORDER, UNSPECIFIED Priority: Medium Current Visit: No (6) Obesity (BMI 30-39.9) SNOMED Code(s): 760510070 Code(s): E66.9 - OBESITY, UNSPECIFIED Priority: Low Current Visit: No (7) Depression SNOMED Code(s): 03770676 Code(s): F32.9 - MAJOR DEPRESSIVE DISORDER, SINGLE EPISODE, UNSPECIFIED Priority: Low Current Visit: No Qualifiers: Depression Type: unspecified Qualified Code(s): F32.9 - Major depressive disorder, single episode, unspecified Problem List Initiated/Reviewed/Updated: Yes My Orders Last 24 Hours: My Active Orders 12/27/16 09:25 Ondansetron [Zofran ODT] 4 mg PO Q4H PRN Plan: I/P: Acute: S/P left total hip arthroplasty - post-operative day 1 -DVT prophylaxis and pain management per primary care team -PT/OT -IS/RT -Titrate oxygen -VSS -Pre-operative Hgb was 13.8; today 12.1 Post-operative nausea but no vomiting. -Unresponsive to zofran yesterday; will try PO today as nausea improved now. -Scopolamine patch ordered -Phenergan IV- improved Chronic: EMELIA on CPAP - RT to assist in setting up Anxiety - controlled Depression - controlled Obesity Hx/o MRSA infection - contact precautions Plan: SW/CM for discharge planning--OK for DC home today from Hospitalist standpoint. GI prophylaxis Home medications as indicated Other orders as listed above Routine AM labs She is a full code. Her PCP is Dr. Bergeron at [facility] in [place]
--- NOTE | 2016-12-27 13:54 | PCM48HPAN ---
Post Anesthesia Note - EVALUATION WITHIN 48HRS OF ANESTHETIC Vital Signs in Normal Range: Yes Patient Participated in Evaluation: Yes Respiratory Function Stable: Yes Airway Patent: Yes Cardiovascular Function Stable: Yes Hydration Status Stable: Yes Pain Control Satisfactory: Yes Nausea and Vomiting Control Satisfactory: Yes Mental Status Recovered: Yes - COMMENTS/OBSERVATIONS Free Text/Narrative:: Patient stated she had been occasionally nauseated. IV zofran has been effective with treating the nausea. No other complaints
[2016-12-27 16:32] VITALS: BP 125/67
--- NOTE | 2016-12-28 07:00 | PCM.SURGPN ---
- General Info Date of Service: 12/27/16 POD#: 1 Functional Status: Reports: Pain Controlled, Tolerating Diet, Ambulating, Urinating, Incentive Spirometry, Other (The pt feels prepared for discharge to home.) - Patient Data Vitals - Most Recent: Last Vital Signs Temp 98.2 F 12/27/16 12:00 Pulse 87 12/27/16 15:28 Resp 14 12/27/16 15:28 BP 125/67 12/27/16 15:28 Pulse Ox 97 12/27/16 15:28 Weight - Most Recent: 244 lb 11.2 oz I&O - Last 24 Hours: Intake & Output 12/27/16 12/27/16 12/28/16 14:59 22:59 06:59 Intake Total 550 Output Total 500 Balance 50 Lab Results Last 24 Hrs: Laboratory Results - last 24 hr 12/27/16 12/27/16 Range/Units 06:33 06:33 WBC 15.13 H (3.98-10.04) K/mm3 RBC 4.17 (3.98-5.22) M/mm3 Hgb 12.1 (11.2-15.7) gm/L Hct 39.4 (34.1-44.9) % MCV 94.5 (79.4-94.8) fl MCH 29.0 (25.6-32.2) pg MCHC 30.7 L (32.2-35.5) g/dl RDW Std Deviation 48.7 H (36.4-46.3) fL Plt Count 233 (182-369) K/mm3 MPV 9.6 (9.4-12.3) fl Sodium 143 (136-145) mEq/L Potassium 4.5 (3.5-5.1) mEq/L Chloride 108 H (98-107) mEq/L Carbon Dioxide 27 (21-32) mEq/L Anion Gap 12.5 (5-15) BUN 14 (7-18) mg/dL Creatinine 0.8 (0.55-1.02) mg/dL Est Cr Clr Drug Dosing 64.76 mL/min Estimated GFR (MDRD) > 60 (>60) mL/min BUN/Creatinine Ratio 17.5 (14-18) Glucose 139 H (80-115) mg/dL Calcium 7.9 L (8.5-10.1) mg/dL Total Bilirubin 0.3 (0.2-1.0) mg/dL AST 39 H (15-37) U/L ALT 31 (14-59) U/L Alkaline Phosphatase 93 (46-116) U/L Total Protein 6.1 L (6.4-8.2) g/dl Albumin 2.7 L (3.4-5.0) g/dl Globulin 3.4 gm/dL Albumin/Globulin Ratio 0.8 L (1-2) Med Orders - Current: Current Medications Discontinued Medications Artificial Tears (Isopto Tears 0.5% Ophth Soln) 0 ml EYEBOTH Q6H PRN PRN Reason: Dry Eyes Aspirin (Ecotrin) 325 mg PO BID [facility] Last Admin: 12/27/16 08:08 Dose: 325 mg Bisacodyl (Dulcolax) 5 mg PO DAILY PRN PRN Reason: Constipation Bupivacaine HCl (Marcaine 0.25%) Confirm Administered Dose 30 ml .ROUTE .STK- MED ONE Stop: 12/26/16 11:27 Last Admin: 12/26/16 14:14 Dose: 30 ml Calcium Carbonate (Calcium Carbonate/Vitamin D 1500 Mg-200 Unit) 1 tab PO BID [facility] Last Admin: 12/27/16 08:11 Dose: 1 tab Cefazolin Sodium (Ancef) Confirm Administered Dose 2 gm .ROUTE .STK-MED ONE Stop: 12/26/16 09:50 Last Admin: 12/26/16 14:08 Dose: 2 gm Cefazolin Sodium (Ancef) Confirm Administered Dose 2 gm .ROUTE .STK-MED ONE Stop: 12/26/16 11:27 Morphine Sulfate 8 mg/Epinephrine HCl 0.3 mg/Cefuroxime Sodium 750 mg/Ketorolac Tromethamine 30 mg/Sodium Chloride 27.9 ml 0 mg .XX ONETIME ONE Stop: 12/26/16 13:31 Last Admin: 12/26/16 16:05 Dose: Not Given Cyclobenzaprine HCl (Flexeril) 10 mg PO TID PRN PRN Reason: Spasms Diphenhydramine HCl (Benadryl) 25 mg IVPUSH Q6H PRN PRN Reason: itching Stop: 12/26/16 20:00 Last Admin: 12/26/16 16:57 Dose: 25 mg Diphenhydramine HCl (Benadryl) 25 mg IVPUSH Q4H PRN PRN Reason: Nausea Docusate Sodium (Colace) 100 mg PO BID [facility] Last Admin: 12/27/16 08:07 Dose: 100 mg Ephedrine Sulfate (Ephedrine Sulfate) Confirm Administered Dose 50 mg .ROUTE .STK-MED ONE Stop: 12/26/16 13:17 Famotidine (Pepcid) 20 mg PO Q12H [facility] Last Admin: 12/27/16 08:07 Dose: 20 mg Fentanyl (Sublimaze) Confirm Administered Dose 100 mcg .ROUTE .STK-MED ONE Stop: 12/26/16 09:51 Fentanyl (Sublimaze) 50 mcg IVPUSH Q5M PRN PRN Reason: pain Stop: 12/26/16 18:00 Guaifenesin (Mucinex) 600 mg PO BID PRN PRN Reason: cold symptoms Hydromorphone HCl (Dilaudid) 0.5 mg IVPUSH Q15M PRN PRN Reason: Pain (severe 7-10) Stop: 12/26/16 23:00 Lactated Ringer's (Ringers, Lactated) 1,000 mls @ 125 mls/hr IV ASDIRECTED [facility] Last Admin: 12/26/16 11:10 Dose: 125 mls/hr Vancomycin HCl 1.5 gm/ Sodium (Chloride) 500 mls @ 333.333 mls/hr IV ONETIME ONE Stop: 12/26/16 14:29 Last Admin: 12/26/16 16:12 Dose: Not Given Vancomycin HCl 1.5 gm/ Sodium (Chloride) 500 mls @ 333.333 mls/hr IV ONETIME ONE Stop: 12/26/16 14:29 Last Admin: 12/26/16 16:12 Dose: Not Given Lactated Ringer's (Ringers, Lactated) Confirm Administered Dose 1,000 mls @ as directed .ROUTE .STK-MED ONE Stop: 12/26/16 14:30 Cefazolin Sodium/Dextrose 2 gm (/ Premix) 50 mls @ 100 mls/hr IV Q8H [facility] Stop: 12/27/16 11:59 Last Admin: 12/27/16 12:43 Dose: 100 mls/hr Vancomycin HCl 1 gm/Vancomycin HCl 500 mg/ Sodium Chloride 500 mls @ 333.333 mls/hr IV Q12H [facility] Stop: 12/27/16 14:29 Last Admin: 12/27/16 13:44 Dose: 333.333 mls/hr Promethazine HCl 12.5 mg/ (Sodium Chloride) 50.5 mls @ 100 mls/hr IV Q6H PRN PRN Reason: Nausea/Vomiting Last Admin: 12/27/16 05:18 Dose: 100 mls/hr Iodine (Iodine 2% Mild Tincture) Confirm Administered Dose 30 ml .ROUTE .STK- MED ONE Stop: 12/26/16 11:27 Last Admin: 12/26/16 14:07 Dose: 18 ml Ketorolac Tromethamine (Toradol) Confirm Administered Dose 30 mg .ROUTE .STK- MED ONE Stop: 12/26/16 13:17 Ketorolac Tromethamine (Toradol) 15 mg IVPUSH Q6H PRN PRN Reason: Pain Lidocaine/Sodium Bicarbonate (Buffered Lidocaine 1% In Ns 8.4%) 0.25 ml IV ONETIME PRN PRN Reason: Prior to IV Start Stop: 12/26/16 18:00 Last Admin: 12/26/16 11:09 Dose: 0.25 ml Loratadine (Claritin) 10 mg PO DAILY [facility] Last Admin: 12/27/16 08:12 Dose: 10 mg Magnesium Hydroxide (Milk Of Magnesia) 30 ml PO BID PRN PRN Reason: Constipation Midazolam HCl (Versed 1 Mg/Ml) Confirm Administered Dose 2 mg .ROUTE .STK-MED ONE Stop: 12/26/16 09:51 Morphine Sulfate (Duramorph Pf) Confirm Administered Dose 10 mg .ROUTE .STK-MED ONE Stop: 12/26/16 09:51 Morphine Sulfate (Morphine) 2 mg IVPUSH Q2H PRN PRN Reason: Breakthrough Pain Naloxone HCl (Narcan) 0.1 mg IVPUSH Q5M PRN PRN Reason: Oversedation Non-Formulary Medication (Melatonin/Pyridoxine Hcl (B6) [Melatonin 10 Mg Tablet] ) 10 mg PO BEDTIME [facility] Ondansetron HCl (Zofran) Confirm Administered Dose 4 mg .ROUTE .STK-MED ONE Stop: 12/26/16 09:50 Ondansetron HCl (Zofran) 4 mg IVPUSH ONETIME PRN PRN Reason: Nausea/Vomiting Stop: 12/26/16 18:00 Ondansetron HCl (Zofran) 4 mg IVPUSH Q6H PRN PRN Reason: Nausea/Vomiting Stop: 12/26/16 18:00 Last Admin: 12/26/16 15:29 Dose: 4 mg Ondansetron HCl (Zofran Odt) 4 mg PO Q4H PRN PRN Reason: Nausea/Vomiting Oxycodone/Acetaminophen (Percocet 325-5 Mg) 1 - 2 tab PO Q4H PRN PRN Reason: Pain Last Admin: 12/27/16 12:33 Dose: 2 tab Propofol (Diprivan 20 Ml) Confirm Administered Dose 400 mg .ROUTE .STK-MED ONE Stop: 12/26/16 09:51 Propofol (Diprivan 20 Ml) Confirm Administered Dose 200 mg .ROUTE .STK-MED ONE Stop: 12/26/16 13:42 Propofol (Diprivan 20 Ml) Confirm Administered Dose 200 mg .ROUTE .STK-MED ONE Stop: 12/26/16 14:29 Saccharomyces Boulardii (Florastor) 250 mg PO DAILY [facility] Last Admin: 12/27/16 08:16 Dose: 250 mg Scopolamine (Transderm-Scop) 1.5 mg TRDERM Q72H PRN PRN Reason: Nausea/Vomiting Last Admin: 12/26/16 16:57 Dose: 1.5 mg Senna (Senna) 8.6 mg PO BID PRN PRN Reason: Constipation Sertraline HCl (Zoloft) 150 mg PO DAILY [facility] Last Admin: 12/27/16 08:12 Dose: 150 mg Sodium Chloride (Saline Flush) 10 ml FLUSH ASDIRECTED PRN PRN Reason: Keep Vein Open Tranexamic Acid (Cyklokapron) Confirm Administered Dose 1,000 mg .ROUTE .STK- MED ONE Stop: 12/26/16 11:27 Last Admin: 12/26/16 14:15 Dose: 1,000 mg Vancomycin HCl (Vancomycin) 1 gm .XX ONETIME ONE Stop: 12/26/16 11:01 Last Admin: 12/26/16 14:15 Dose: 1 gm Vancomycin HCl (Pharmacy To Dose - Vancomycin) 1 dose .XX ASDIRECTED [facility] Vit A/Vit C/Vit E/Selen/Cu/Zn/Lutei (Icaps Mv) 2 tab PO BID [facility]DI Last Admin: 12/27/16 08:10 Dose: 2 tab - Exam Wound/Incisions: Dressing Dry and Intact General: Alert, Cooperative, No Acute Distress Lungs: Normal Respiratory Effort Extremities: Other (NVS intact. Left hip soft. Jo's negative for BLE.) - Problem List Review Problem List Initiated/Reviewed/Updated: Yes - My Orders Last 24 Hours: Active Orders 24 hr Category Date Time Status Ready for Discharge [RC] PER UNIT ROUTINE Care 12/27/16 09:36 Active - Assessment Assessment (Free Text/Narrative):: PPOD#1 - left NANCY - Plan Plan (Free Text/Narrative):: 1. Hgb 12.1. 2. Discharge to home today. 3. TEDs, 325mg ASA BID, frequent mobility. 4. NANCY precautions. The pt's case was discussed with Dr. Hernandez.
--- NOTE | 2016-12-28 07:02 | PCM.DCSUM1 ---
Discharge Summary - Hospital Course Brief History: Amy is a 66 yo female who underwent left NANCY with Dr. Hernandez on 12-26-16. The procedure was completed under spinal anesthesia with MAC. The pt tolerated the procedure well and was admitted to the Medical-Surgical Unit. She received Ancef and vancomycin love-operatively. Medical management was provided by the Hospitalist service. The pt's Hospital course was uneventful. The pt's Hgb on POD#1 was 12.1. On POD#1, 325mg ASA BID was initiated for VTE prophylaxis. SCDs and TEDs were also ordered. A Mepilex dressing was placed at the incision site at the time of surgery and remained clean and dry. The pt participated in P.T. and O.T. and progressed well. She followed the NANCY precautions. The pt was allowed to WBAT. On POD#1, the pt was deemed appropriate to discharge to home with her family. - Discharge Data Discharge Date: 12/27/16 Discharge Disposition: Home, Self-Care 01 Condition: Good - Patient Summary/Data Consults: Consultations 12/26/16 14:51 Consult to Physician [CONS] Routine OT Evaluation and Treatment [CONS] Routine 12/26/16 14:56 PT Evaluation and Treatment [CONS] Routine - Patient Instructions Diet: Usual Diet as Tolerated Activity: Apply Ice, As Tolerated, Elevate Extremity, Full Weight Bearing Activity, Other: Total hip arthroplasty precautions. Driving: Do Not Drive Showering/Bathing: May Shower Wound/Incision Care: Keep Operative Site/Wound Site Clean and Dry, Do NOT Change Dressing Notify Provider of: Fever, Increased Pain, Swelling and Redness, Drainage, Nausea and/or Vomiting Other/Special Instructions: Please get up and moving around every hour while awake. This helps to prevent blood clots. Please take 325mg aspirin twice daily - this also helps to prevent blood clots. The medication is being used for blood clot prevention and not for pain control, so please use the medication twice daily as directed. Please wear the MERON hose during the day and you may remove them at night. Please schedule for P.T. Complete the P.T. exercises and stretches that were instructed in the Hospital. Follow the total hip arthroplasty precautions. Please use the pain medication and muscle relaxant as needed. The medication may cause drowsiness and/or constipation. You could use a stool softener like docusate sodium or Colace 100mg twice daily and/or a laxative like polyethylene glycol or Miralax daily for constipation. Contact your primary care provider for further instructions if you are constipated. Please schedule an appointment with your primary care provider for 'routine post-op care'. Use the incentive spirometer often. Please place ice to the hip often. Please elevate the limb to decrease swelling. Keep the Mepilex dressing in place until follow-up. Please call [phone] with questions or concerns. - Discharge Plan Prescriptions/Med Rec: Acetaminophen/oxyCODONE [Percocet 325-5 MG] 1 - 2 tab PO Q4H PRN #60 tablet PRN Reason: Pain Aspirin [Ecotrin] 325 mg PO BID #70 tab.ec Cyclobenzaprine [Flexeril] 10 mg PO Q8H PRN #40 tablet PRN Reason: muscle spasms Famotidine [Pepcid] 20 mg PO Q12H #60 tablet Ondansetron [Zofran ODT] 4 mg PO Q4H PRN #20 tab.dis PRN Reason: Nausea Home Medications: Home Meds Cetirizine HCl [Zyrtec] 10 mg PO DAILY 05/08/15 [History] Sertraline HCl 150 mg PO DAILY 05/08/15 [History] Acetaminophen [Tylenol Arthritis] 2 tab PO Q8HR PRN 12/25/16 [History] Antiox #11/OM3/DHA/EPA/Lut/June [Eye Health Adult 50+ Softgel] 2 cap PO BID 12/25 [History] Calcium Carbonate/Vitamin D3 [Calcium 500 mg Chewable Tablet] 500 mg PO BID 07/06 [History] Dextran 70/Hypromellose [Artificial Tears] 1 drop EYEBOTH Q6H PRN 12/25/16 [ History] Flaxseed/Evening Prim/Bilberry [Tears Again Hydrate Softgel] 1 cap PO DAILY 07/06 [History] L.acidoph,Paracasei, B.lactis [Probiotic] 1 cap PO DAILY 12/25/16 [History] Melatonin/Pyridoxine HCl (B6) [Melatonin 10 mg Tablet] 10 mg PO BEDTIME [History] guaiFENesin [Mucinex] 600 mg PO BID PRN 12/25/16 [History] Acetaminophen/oxyCODONE [Percocet 325-5 MG] 1 - 2 tab PO Q4H PRN #60 tablet 09/05 [Rx] Aspirin [Ecotrin] 325 mg PO BID #70 tab.ec 12/27/16 [Rx] Cyclobenzaprine [Flexeril] 10 mg PO Q8H PRN #40 tablet 12/27/16 [Rx] Famotidine [Pepcid] 20 mg PO Q12H #60 tablet 12/27/16 [Rx] Ondansetron [Zofran ODT] 4 mg PO Q4H PRN #20 tab.dis 12/27/16 [Rx] Patient Handouts: Total Hip Replacement, [id number], Surgical Site Infections FAQs - WALL, Total Hip Replacement, Care After, [id number], MRSA FAQs - WALL Referrals: Maryan Coleman PA-C [Physician Inside Sales Administrator] - (Please see Maryan Coleman on Monday at 10:45 AM 01/03/17 and Monday at 10:45 AM on 01/10/17.) - Patient Data Vitals - Most Recent: Last Vital Signs Temp 98.2 F 12/27/16 12:00 Pulse 87 12/27/16 15:28 Resp 14 12/27/16 15:28 BP 125/67 12/27/16 15:28 Pulse Ox 97 12/27/16 15:28 Weight - Most Recent: 244 lb 11.2 oz I&O - Last 24 hours: Intake & Output 12/27/16 12/28/16 12/28/16 22:59 06:59 14:59 Intake Total 550 Output Total 500 Balance 50 Lab Results - Last 24 hrs: Laboratory Results - last 24 hr 12/27/16 12/27/16 Range/Units 06:33 06:33 WBC 15.13 H (3.98-10.04) K/mm3 RBC 4.17 (3.98-5.22) M/mm3 Hgb 12.1 (11.2-15.7) gm/L Hct 39.4 (34.1-44.9) % MCV 94.5 (79.4-94.8) fl MCH 29.0 (25.6-32.2) pg MCHC 30.7 L (32.2-35.5) g/dl RDW Std Deviation 48.7 H (36.4-46.3) fL Plt Count 233 (182-369) K/mm3 MPV 9.6 (9.4-12.3) fl Sodium 143 (136-145) mEq/L Potassium 4.5 (3.5-5.1) mEq/L Chloride 108 H (98-107) mEq/L Carbon Dioxide 27 (21-32) mEq/L Anion Gap 12.5 (5-15) BUN 14 (7-18) mg/dL Creatinine 0.8 (0.55-1.02) mg/dL Est Cr Clr Drug Dosing 64.76 mL/min Estimated GFR (MDRD) > 60 (>60) mL/min BUN/Creatinine Ratio 17.5 (14-18) Glucose 139 H (80-115) mg/dL Calcium 7.9 L (8.5-10.1) mg/dL Total Bilirubin 0.3 (0.2-1.0) mg/dL AST 39 H (15-37) U/L ALT 31 (14-59) U/L Alkaline Phosphatase 93 (46-116) U/L Total Protein 6.1 L (6.4-8.2) g/dl Albumin 2.7 L (3.4-5.0) g/dl Globulin 3.4 gm/dL Albumin/Globulin Ratio 0.8 L (1-2) Med Orders - Current: Current Medications Discontinued Medications Artificial Tears (Isopto Tears 0.5% Ophth Soln) 0 ml EYEBOTH Q6H PRN PRN Reason: Dry Eyes Aspirin (Ecotrin) 325 mg PO BID [facility] Last Admin: 12/27/16 08:08 Dose: 325 mg Bisacodyl (Dulcolax) 5 mg PO DAILY PRN PRN Reason: Constipation Bupivacaine HCl (Marcaine 0.25%) Confirm Administered Dose 30 ml .ROUTE .STK- MED ONE Stop: 12/26/16 11:27 Last Admin: 12/26/16 14:14 Dose: 30 ml Calcium Carbonate (Calcium Carbonate/Vitamin D 1500 Mg-200 Unit) 1 tab PO BID [facility] Last Admin: 12/27/16 08:11 Dose: 1 tab Cefazolin Sodium (Ancef) Confirm Administered Dose 2 gm .ROUTE .STK-MED ONE Stop: 12/26/16 09:50 Last Admin: 12/26/16 14:08 Dose: 2 gm Cefazolin Sodium (Ancef) Confirm Administered Dose 2 gm .ROUTE .STK-MED ONE Stop: 12/26/16 11:27 Morphine Sulfate 8 mg/Epinephrine HCl 0.3 mg/Cefuroxime Sodium 750 mg/Ketorolac Tromethamine 30 mg/Sodium Chloride 27.9 ml 0 mg .XX ONETIME ONE Stop: 12/26/16 13:31 Last Admin: 12/26/16 16:05 Dose: Not Given Cyclobenzaprine HCl (Flexeril) 10 mg PO TID PRN PRN Reason: Spasms Diphenhydramine HCl (Benadryl) 25 mg IVPUSH Q6H PRN PRN Reason: itching Stop: 12/26/16 20:00 Last Admin: 12/26/16 16:57 Dose: 25 mg Diphenhydramine HCl (Benadryl) 25 mg IVPUSH Q4H PRN PRN Reason: Nausea Docusate Sodium (Colace) 100 mg PO BID [facility] Last Admin: 12/27/16 08:07 Dose: 100 mg Ephedrine Sulfate (Ephedrine Sulfate) Confirm Administered Dose 50 mg .ROUTE .STK-MED ONE Stop: 12/26/16 13:17 Famotidine (Pepcid) 20 mg PO Q12H [facility] Last Admin: 12/27/16 08:07 Dose: 20 mg Fentanyl (Sublimaze) Confirm Administered Dose 100 mcg .ROUTE .STK-MED ONE Stop: 12/26/16 09:51 Fentanyl (Sublimaze) 50 mcg IVPUSH Q5M PRN PRN Reason: pain Stop: 12/26/16 18:00 Guaifenesin (Mucinex) 600 mg PO BID PRN PRN Reason: cold symptoms Hydromorphone HCl (Dilaudid) 0.5 mg IVPUSH Q15M PRN PRN Reason: Pain (severe 7-10) Stop: 12/26/16 23:00 Lactated Ringer's (Ringers, Lactated) 1,000 mls @ 125 mls/hr IV ASDIRECTED [facility] Last Admin: 12/26/16 11:10 Dose: 125 mls/hr Vancomycin HCl 1.5 gm/ Sodium (Chloride) 500 mls @ 333.333 mls/hr IV ONETIME ONE Stop: 12/26/16 14:29 Last Admin: 12/26/16 16:12 Dose: Not Given Vancomycin HCl 1.5 gm/ Sodium (Chloride) 500 mls @ 333.333 mls/hr IV ONETIME ONE Stop: 12/26/16 14:29 Last Admin: 12/26/16 16:12 Dose: Not Given Lactated Ringer's (Ringers, Lactated) Confirm Administered Dose 1,000 mls @ as directed .ROUTE .STK-MED ONE Stop: 12/26/16 14:30 Cefazolin Sodium/Dextrose 2 gm (/ Premix) 50 mls @ 100 mls/hr IV Q8H [facility] Stop: 12/27/16 11:59 Last Admin: 12/27/16 12:43 Dose: 100 mls/hr Vancomycin HCl 1 gm/Vancomycin HCl 500 mg/ Sodium Chloride 500 mls @ 333.333 mls/hr IV Q12H [facility] Stop: 12/27/16 14:29 Last Admin: 12/27/16 13:44 Dose: 333.333 mls/hr Promethazine HCl 12.5 mg/ (Sodium Chloride) 50.5 mls @ 100 mls/hr IV Q6H PRN PRN Reason: Nausea/Vomiting Last Admin: 12/27/16 05:18 Dose: 100 mls/hr Iodine (Iodine 2% Mild Tincture) Confirm Administered Dose 30 ml .ROUTE .STK- MED ONE Stop: 12/26/16 11:27 Last Admin: 12/26/16 14:07 Dose: 18 ml Ketorolac Tromethamine (Toradol) Confirm Administered Dose 30 mg .ROUTE .STK- MED ONE Stop: 12/26/16 13:17 Ketorolac Tromethamine (Toradol) 15 mg IVPUSH Q6H PRN PRN Reason: Pain Lidocaine/Sodium Bicarbonate (Buffered Lidocaine 1% In Ns 8.4%) 0.25 ml IV ONETIME PRN PRN Reason: Prior to IV Start Stop: 12/26/16 18:00 Last Admin: 12/26/16 11:09 Dose: 0.25 ml Loratadine (Claritin) 10 mg PO DAILY [facility] Last Admin: 12/27/16 08:12 Dose: 10 mg Magnesium Hydroxide (Milk Of Magnesia) 30 ml PO BID PRN PRN Reason: Constipation Midazolam HCl (Versed 1 Mg/Ml) Confirm Administered Dose 2 mg .ROUTE .STK-MED ONE Stop: 12/26/16 09:51 Morphine Sulfate (Duramorph Pf) Confirm Administered Dose 10 mg .ROUTE .STK-MED ONE Stop: 12/26/16 09:51 Morphine Sulfate (Morphine) 2 mg IVPUSH Q2H PRN PRN Reason: Breakthrough Pain Naloxone HCl (Narcan) 0.1 mg IVPUSH Q5M PRN PRN Reason: Oversedation Non-Formulary Medication (Melatonin/Pyridoxine Hcl (B6) [Melatonin 10 Mg Tablet] ) 10 mg PO BEDTIME ADDI Ondansetron HCl (Zofran) Confirm Administered Dose 4 mg .ROUTE .STK-MED ONE Stop: 12/26/16 09:50 Ondansetron HCl (Zofran) 4 mg IVPUSH ONETIME PRN PRN Reason: Nausea/Vomiting Stop: 12/26/16 18:00 Ondansetron HCl (Zofran) 4 mg IVPUSH Q6H PRN PRN Reason: Nausea/Vomiting Stop: 12/26/16 18:00 Last Admin: 12/26/16 15:29 Dose: 4 mg Ondansetron HCl (Zofran Odt) 4 mg PO Q4H PRN PRN Reason: Nausea/Vomiting Oxycodone/Acetaminophen (Percocet 325-5 Mg) 1 - 2 tab PO Q4H PRN PRN Reason: Pain Last Admin: 12/27/16 12:33 Dose: 2 tab Propofol (Diprivan 20 Ml) Confirm Administered Dose 400 mg .ROUTE .STK-MED ONE Stop: 12/26/16 09:51 Propofol (Diprivan 20 Ml) Confirm Administered Dose 200 mg .ROUTE .STK-MED ONE Stop: 12/26/16 13:42 Propofol (Diprivan 20 Ml) Confirm Administered Dose 200 mg .ROUTE .STK-MED ONE Stop: 12/26/16 14:29 Saccharomyces Boulardii (Florastor) 250 mg PO DAILY [facility] Last Admin: 12/27/16 08:16 Dose: 250 mg Scopolamine (Transderm-Scop) 1.5 mg TRDERM Q72H PRN PRN Reason: Nausea/Vomiting Last Admin: 12/26/16 16:57 Dose: 1.5 mg Senna (Senna) 8.6 mg PO BID PRN PRN Reason: Constipation Sertraline HCl (Zoloft) 150 mg PO DAILY [facility] Last Admin: 12/27/16 08:12 Dose: 150 mg Sodium Chloride (Saline Flush) 10 ml FLUSH ASDIRECTED PRN PRN Reason: Keep Vein Open Tranexamic Acid (Cyklokapron) Confirm Administered Dose 1,000 mg .ROUTE .STK- MED ONE Stop: 12/26/16 11:27 Last Admin: 12/26/16 14:15 Dose: 1,000 mg Vancomycin HCl (Vancomycin) 1 gm .XX ONETIME ONE Stop: 12/26/16 11:01 Last Admin: 12/26/16 14:15 Dose: 1 gm Vancomycin HCl (Pharmacy To Dose - Vancomycin) 1 dose .XX ASDIRECTED [facility] Vit A/Vit C/Vit E/Selen/Cu/Zn/Lutei (Icaps Mv) 2 tab PO BID [facility] Last Admin: 12/27/16 08:10 Dose: 2 tab *Q Meaningful Use (DIS) - VTE *Q VTE Criteria *Q: - Stroke *Q Stroke Criteria *Q: - AMI *Q AMI Criteria *Q:
--- NOTE | 2017-01-02 12:56 | PCM.OPNOTE ---
- General Post-Op/Procedure Note Date of Surgery/Procedure: 12/26/16 Operative Procedure(s): left total hip arthroplasty Pre Op Diagnosis: left hip osteoarthrosis Post-Op Diagnosis: Same Anesthesia Technique: Local, MAC, Spinal Primary Surgeon: Al Hernandez Anesthesia Provider: Aarti Ross Saddle Stitching Machine Operator: Maryan Coleman Saddle Stitching Machine Operator: Whitney Haile EBVeronique in mLs: 300 Complications: None Condition: Good
--- NOTE | 2017-01-04 22:20 | OR ---
DATE OF OPERATION: 12/26/2016 SURGEON: Al Hernandez MD OPERATION PERFORMED: Left total hip osteoarthrosis. PREOPERATIVE DIAGNOSIS: Left hip osteoarthrosis. POSTOPERATIVE DIAGNOSIS: Left hip osteoarthrosis. ANESTHESIA: Local MAC with spinal. ANESTHESIA PROVIDER: Dr. Aarti Ross. ASSISTANTS: 1. Maryan Coleman PA-C. 2. Whitney Haile LPN. ESTIMATED BLOOD LOSS: 300 mL. COMPLICATIONS: None. CONDITION: Stable. IMPLANTS: 1. Cedar size 48 mm Tritanium acetabular cup. 2. Cedar size 36 mm MDM component and a 42 mm MDM shell with a 22.2 +3 metal head and size 5 Accolade II stem. DESCRIPTION OF PROCEDURE: The patient was identified in the preop holding area. Proper site was marked and identified by the surgeon. The patient was taken back to the OR. After adequate anesthesia, the patient was placed in the right lateral decubitus position. Axillary roll was placed. All bony prominences were well padded. Pegs were then placed and were well padded. The patient's gluteal fold was parallel to the floor. At this time, the left hip was then sterilely prepped and draped in the usual sterile fashion. OR time-out was performed. The patient received 2 g of IV Ancef. At this time, standard incision was made centered over the greater trochanter. This was taken down to the IT band and gluteal fascia. This was then incised along the incisional length. Charnley retractor was then placed. Short external rotators were identified. Takedown of the short external rotators was done starting at the piriformis all the way down to the level of the lesser trochanter. At this time, the hip was then dislocated. Neck cut guide was then placed. The neck cut was then completed. It was found to be an adequate neck cut. Attention was turned to the acetabulum. Anterior and posterior acetabular retractors were placed along with inferior acetabular retractor. The pulvinar, anterior and posterior labrum were removed starting with a 42 reamer, I was able to ream up to a 48, which was found to have good purchase. At this time, a 48 mm trial had adequate purchase. A 48 mm Tritanium acetabular cup was then impacted into place in roughly 35 degrees of abduction and 20 degrees of anteversion. At this time, the MDM liner was then impacted into place. Attention was turned to the femur. Box chisel was used out laterally and starter awl was placed down the canal. Starting with the 0 broach, I was able to broach up to a size 5, which was found to be rotationally and vertically stable. At this time, a 0 neck was placed and then the hip was relocated with the trial components. The patient was noted to have a just slight leg length shortage, was brought through a range of motion, and found to be stable. At this time, a bone hook was used for dislocation of the hip. It was decided that a +3 insert would be used. At this time, the size 5 Accolade II stem was impacted into place along with +3 22.2 mm metal head with a 36 mm MDM polyethylene liner. This was then impacted onto the Accolade II stem and the hip was relocated. 1 L dilute Betadine solution was irrigated through the hip along with 3 L of pulse lavage irrigation with Ancef. Two #5 Ethibond sutures were used for the capsule band short external rotators. A #2 barbed suture was used for closure of the IT band and gluteal fascia, 2-0 Vicryl was used subcutaneously. Heparin was used for the skin. The patient tolerated the procedure well and was sent to PACU in stable condition. BREANNA /[id number]
== END 2016-12-27 16:25 | disposition home or self-care (01) | DRG 470 ==
LOC: JD.ICU 10:18 → JD.MS 11:44
PROVIDERS: ADMIT Orthopaedic Surgery; ATTEND Orthopaedic Surgery
PROC: 0SRB019 Replacement of Left Hip Joint with Metal Synthetic Substitute, Cemented, Open Approach (ICD-10-PCS; principal; 2016-12-26)
DX: M16.12 Unilateral primary osteoarthritis, left hip (principal); R11.0 Nausea; E66.9 Obesity, unspecified; Z68.37 Body mass index [BMI] 37.0-37.9, adult; G47.33 Obstructive sleep apnea (adult) (pediatric); Z88.2 Allergy status to sulfonamides; Z79.899 Other long term (current) drug therapy; H54.7 Unspecified visual loss; F32.9 Major depressive disorder, single episode, unspecified; F41.9 Anxiety disorder, unspecified; Z96.653 Presence of artificial knee joint, bilateral; Z86.14 Personal history of Methicillin resistant Staphylococcus aureus infection
CPT/HCPCS: 01214; 36415; 73501-26-LT; 73501-LT; 80053; 82962; 85027; 86140; 86850; 86900; 86901; 87641; 94762; 97110-GP; 97116-GP; 97161-GP; 97165-GO; 97535-GO; 99221; 99231; A9270-GY; C1776; J0171; J0690; J0697; J1200; J1885; J2250; J2270; J2405; J2550; J2704; J3010; J3370; J3490; J7040; J7050; J7120

== ENCOUNTER 2018-10-27 10:07 | Emergency (ER) | payer MEDICARE, BC ==
[2018-10-27 10:17] VITALS: BP 160/81
--- NOTE | 2018-10-27 10:18 | EDM.PDOC ---
ED HPI GENERAL MEDICAL PROBLEM - General Chief Complaint: Lower Extremity Injury/Pain Stated Complaint: POSS BLOOD CLOT L LEG Time Seen by Provider: 10/27/18 10:16 - History of Present Illness INITIAL COMMENTS - FREE TEXT/NARRATIVE: 68-year-old female presents emergency room with left lower leg and knee pain. 6 days ago the patient stumbled going up a curb and landed on her knee. She's developed some bruising around this area. She's walking on it okay however now the walking is getting more tender from the bottom of her foot up above her knee. She's had increasing swelling to the area and increasing bruising to the lower extremity up to the knee and around the knee on the anterior aspect. She' s also having increasing swelling to the area. Patient had a knee replacement done 2 years ago. Left Knee Pain Score (Numeric/FACES): 3 - Related Data Allergies Allergy/AdvReac Type Severity Reaction Status Date / Time Sulfa (Sulfonamide Allergy Hives Verified 10/27/18 10:17 Antibiotics) Home Meds: Home Meds Cetirizine HCl [Zyrtec] 10 mg PO DAILY 05/08/15 [History] Acetaminophen [Tylenol Arthritis] 2 tab PO Q8HR PRN 12/25/16 [History] Dextran 70/Hypromellose [Artificial Tears] 1 drop EYEBOTH Q6H PRN 12/25/16 [ History] Flaxseed/Evening Prim/Bilberry [Tears Again Hydrate Softgel] 1 cap PO DAILY 07/06 [History] Melatonin/Pyridoxine HCl (B6) [Melatonin Tr 10 mg Tablet] 10 mg PO BEDTIME 12/25 [History] guaiFENesin [Mucinex] 1,200 mg PO BID PRN 12/25/16 [History] Aspirin [Ecotrin] 325 mg PO BID #70 tab.ec 12/27/16 [Rx] Meloxicam 15 mg PO DAILY 10/27/18 [History] Oxybutynin [Oxybutynin ER] 5 mg PO DAILY 10/27/18 [History] Rosuvastatin [Crestor] 5 mg PO QPM 10/27/18 [History] metFORMIN HCl [Fortamet] 500 mg PO DAILY 10/27/18 [History] Past Medical History HEENT History: Reports: Allergic Rhinitis, Impaired Vision, Sinusitis, Other ( See Below) Other HEENT History: eustachian tube dysfunction, wears glasses Cardiovascular History: Reports: None Respiratory History: Reports: Sleep Apnea, SOB Other Respiratory History: uses CPAP Gastrointestinal History: Reports: Chronic Diarrhea, Pancreatitis Genitourinary History: Reports: Other (See Below) Other Genitourinary History: frequency and 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: Musculoskeletal History: Reports: Other (See Below) Other Musculoskeletal History: plantar fascititis, left hip pain Neurological History: Reports: None Psychiatric History: Reports: Anxiety, Depression, Panic Attack Endocrine/Metabolic History: Reports: Obesity/BMI 30+ Hematologic History: Reports: None Immunologic History: Reports: None Oncologic (Cancer) History: Reports: None Dermatologic History: Reports: None - Infectious Disease History Infectious Disease History: Reports: MRSA - Past Surgical History Head Surgeries/Procedures: Reports: None HEENT Surgical History: Reports: Cataract Surgery, LASIK, Myringotomy w Tube(s) Cardiovascular Surgical History: Reports: None Respiratory Surgical History: Reports: None GI Surgical History: Reports: Cholecystectomy, Colonoscopy, Hernia Repair/Other Female Surgical History: Reports: Section, Hysterectomy Endocrine Surgical History: Reports: None Neurological Surgical History: Reports: None Musculoskeletal Surgical History: Reports: Knee Replacement, Other (See Below) Other Musculoskeletal Surgeries/Procedures:: bilateral knee replacements Dermatological Surgical History: Reports: None Social & Family History - Family History Family Medical History: Noncontributory Cardiac: Reports: Hypertension, [place] Respiratory: Reports: Asthma Neurological: Reports: Alzheimers Disease Endocrine/Metabolic: Reports: Diabetes, type II Oncologic: Reports: Pancreatic - Caffeine Use Caffeine Use: Reports: Soda Review of Systems - Review of Systems Review Of Systems: See Below Constitutional: Reports: No Symptoms Respiratory: Reports: No Symptoms Cardiovascular: Reports: No Symptoms GI/Abdominal: Reports: No Symptoms Genitourinary: Reports: No Symptoms Musculoskeletal: Reports: Other (Worsening left leg pain). Denies: No Symptoms Skin: Reports: Other (Bruising over the left leg) Neurological: Reports: No Symptoms Psychiatric: Reports: No Symptoms, Other (She is treated for depression) ED EXAM, GENERAL - Physical Exam Exam: See Below Exam Limited By: No Limitations General Appearance: Alert, No Apparent Distress Respiratory/Chest: No Respiratory Distress, Lungs Clear, Normal Breath Sounds Cardiovascular: Regular Rate, Rhythm, No Edema, No Murmur GI/Abdominal: Normal Bowel Sounds, Soft, Non-Tender, Other (Obese) Back Exam: Normal Inspection. No: CVA Tenderness (L), CVA Tenderness (R) Extremities: Other (Significant swelling in the left lower leg with ecchymotic changes tenderness both medial and lateral) Neurological: Alert, Oriented, Normal Cognition Psychiatric: Normal Affect, Normal Mood Course - Vital Signs Last Recorded V/S: Last Vital Signs Temp 36.1 C 10/27/18 10:16 Pulse 75 10/27/18 10:16 Resp 20 10/27/18 10:16 BP 160/81 H 10/27/18 10:16 Pulse Ox 95 10/27/18 10:16 - Orders/Labs/Meds Orders: Active Orders 24 hr Category Date Time Status VL Duplex Lwr Ext Veins Ltd Lt [US] Stat Exams 10/27/18 10:34 Taken Labs: Laboratory Tests 10/27/18 10/27/18 10/27/18 Range/Units 10:48 10:48 10:48 WBC 11.34 H (3.98-10.04) K/mm3 RBC 4.13 (3.98-5.22) M/mm3 Hgb 11.9 (11.2-15.7) gm/L Hct 38.0 (34.1-44.9) % MCV 92.0 (79.4-94.8) fl MCH 28.8 (25.6-32.2) pg MCHC 31.3 L (32.2-35.5) g/dl RDW Std Deviation 47.9 H (36.4-46.3) fL Plt Count 285 (182-369) K/mm3 MPV 8.9 L (9.4-12.3) fl Neutrophils % (Manual) 69 H (40-60) % Band Neutrophils % 0 (0-10) % Lymphocytes % (Manual) 18 L (20-40) % Atypical Lymphs % 0 % Monocytes % (Manual) 9 (2-10) % Eosinophils % (Manual) 4 (0.7-5.8) % Basophils % (Manual) 0 L (0.1-1.2) Platelet Estimate Adequate RBC Morph Comment Normal PT 10.1 (9.7-12.0) SECONDS INR < 0.93 APTT 26 (22-31) SECONDS Sodium 141 (136-145) mEq/L Potassium 4.3 (3.5-5.1) mEq/L Chloride 110 H (98-107) mEq/L Carbon Dioxide 26 (21-32) mEq/L Anion Gap 9.3 (5-15) BUN 11 (7-18) mg/dL Creatinine 0.7 (0.55-1.02) mg/dL Est Cr Clr Drug Dosing 72.01 mL/min Estimated GFR (MDRD) > 60 (>60) mL/min BUN/Creatinine Ratio 15.7 (14-18) Glucose 94 (80-115) mg/dL Calcium 8.6 (8.5-10.1) mg/dL Total Bilirubin 0.5 (0.2-1.0) mg/dL AST 14 L (15-37) U/L ALT 18 (14-59) U/L Alkaline Phosphatase 103 (46-116) U/L Total Protein 6.7 (6.4-8.2) g/dl Albumin 2.9 L (3.4-5.0) g/dl Globulin 3.8 gm/dL Albumin/Globulin Ratio 0.8 L (1-2) - Re-Assessments/Exams Free Text/Narrative Re-Assessment/Exam: 10/27/18 10:39 Check some labs I will not check a d-dimer on her as with his much bruising as she has not lower extremity is certainly come back positive will proceed straight to an ultrasound 10/27/18 12:25 Ultrasound is negative for DVT. Laboratory evaluation for the most part unremarkable she's got a slight increase in her chloride at 110 white count slightly elevated at 11,340. The patient be discharged home she'll follow-up in the clinic on Monday for recheck Departure - Departure Time of Disposition: 12:27 Disposition: Home, Self-Care 01 Clinical Impression: Left leg injury - Discharge Information Referrals: Laura David NP [Primary Care Provider] - Forms: ED Department Discharge Additional Instructions: Return to the emergency room with any questions problems worsening symptoms. You can take Tylenol in addition to your meloxicam if needed. Follow-up in the clinic with Laura on Monday for recheck. - My Orders Last 24 Hours: My Active Orders 10/27/18 10:34 VL Duplex Lwr Ext Veins Ltd Lt [US] Stat - Assessment/Plan Last 24 Hours: My Active Orders 10/27/18 10:34 VL Duplex Lwr Ext Veins Ltd Lt [US] Stat
--- NOTE | 2018-10-29 09:22 | US ---
Left lower extremity deep venous ultrasound: Duplex and color flow imaging was obtained of the left common femoral, proximal greater saphenous, superficial femoral, popliteal, posterior tibial and peroneal veins. Right common femoral vein was also evaluated. Findings: Normal phasic flow, augmentation and compression are seen. Lymph nodes are seen within the left groin which are believed to be normal. Impression: 1. No evidence of deep venous thrombosis with left lower extremity or within the right common femoral vein. Diagnostic code #1 I agree with preliminary report from [facility], finalized on 10/27/18, 1:04 PM Central Time
== END 2018-10-27 12:31 | disposition home or self-care (01) ==
LOC: JD.ED 10:07
DX: T84.093A Other mechanical complication of internal left knee prosthesis, initial encounter (principal); F41.9 Anxiety disorder, unspecified; F32.9 Major depressive disorder, single episode, unspecified; Z96.653 Presence of artificial knee joint, bilateral; Z88.2 Allergy status to sulfonamides; Z79.899 Other long term (current) drug therapy; Z79.82 Long term (current) use of aspirin; Z79.84 Long term (current) use of oral hypoglycemic drugs
CPT/HCPCS: 36415; 80053; 85007; 85027; 85610; 85730; 93971-26-LT; 93971-LT; 99281; 99284-25

== ENCOUNTER 2024-01-03 09:29 | Day surgery (SDC) | payer BC, MEDICARE ==
[~2024-01-03 09:29] MED LIST changes: -Lactated Ringers 1,000 ML IV SCH; +Lidocaine 1% 4 ML ONE; -Lidocaine 1%/Sod Bicarbonate in NS 8.4% 1 ML Syringe IV PRN; +Propofol 200 MG/20 ML SDV ONE; +Sodium Chloride 0.9% 10 ML Syringe FLUSH SCH
[2024-01-03] MEDS: Lactated Ringers 1,000 ML IV SCH (09:40)
[2024-01-03] MEDS ORDERED: Propofol 200 MG/20 ML SDV ONE (10:31)
[2024-01-03 12:04] VITALS: BP 150/85; PULSE 65
== END 2024-01-03 11:45 | disposition home or self-care (01) ==
LOC: JD.SDS 09:29
PROVIDERS: ATTEND Surgery
DX: Z12.11 Encounter for screening for malignant neoplasm of colon (principal); D12.3 Benign neoplasm of transverse colon; K57.30 Diverticulosis of large intestine without perforation or abscess without bleeding; K64.8 Other hemorrhoids; Z80.0 Family history of malignant neoplasm of digestive organs; F32.A Depression, unspecified; F41.9 Anxiety disorder, unspecified; J44.9 Chronic obstructive pulmonary disease, unspecified; E66.9 Obesity, unspecified; Z68.41 Body mass index [BMI] 40.0-44.9, adult; Z88.2 Allergy status to sulfonamides; Z79.899 Other long term (current) drug therapy
CPT/HCPCS: 45380; 93005; J2704; J7120; 00811; 93010; 99100; J3490